=== PATIENT | male | born 1980 | race African-American/Black ===

== ENCOUNTER 2022-03-09 11:32 | Emergency (ER) | payer OTHER, SELFPAY ==
--- NOTE | ~2022-03-09 | CT_ITS ---
EXAMINATION: CT brain wo con DATE: 03/09/2022 12:59 INDICATION: Seizure. Loss of consciousness. TECHNIQUE: Computed tomography (CT) of the head was performed without intravenous contrast. The mA wa s adjusted according to patient size. Iterative reconstruction technique was employed. The dose-lengt h product was 605.33 mGy-cm. COMPARISON: None FINDINGS: There is chronic encephalomalacia in the left frontal lobe. There is no intracranial hemorr sebas, acute infarction, or abnormal intracranial mass lesion. The ventricles are normal in size. Ther e is mucosal thickening in the paranasal sinuses. The mastoid air cells are normal. The orbits are no rmal. IMPRESSION: 1. 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 Reviewed, dictated and finalized at location A.
[2022-03-09 11:36] VITALS: BP 105/51; PULSE 92; RESP 15; TEMP 36.9; O2SAT 96
--- NOTE | 2022-03-09 11:36 | ECG_ITS ---
Measurements Intervals [place] Rate: 89 P: 58 [place]: 173 QRS: 91 QRSD: 112 T: 15 QT: 384 QTc: 468 Interpretive Statements SINUS RHYTHM RIGHT AXIS DEVIATION RIGHT BUNDLE BRANCH BLOCK [120+ ms QRS DURATION, UPRIGHT V1, 40+ ms S IN I/aVL/V4/V5/V6] ABNORMAL ECG NO PREVIOUS ECG AVAILABLE FOR COMPARISON Electronically Signed On 03-10-2022 11:11:28 CDT by Iraj Kay M.D.
--- NOTE | 2022-03-09 11:36 | ED.SEIZURE ---
HPI - Seizure General Chief Complaint: Seizure Stated Complaint: seizure Time Seen by Provider: 03/09/22 11:35 Source: patient, EMS and RN notes reviewed Mode of arrival: EMS History of Present Illness HPI Narrative: Patient is 41 years old -[place] male had a seizure while shopping. Last seizure almost 1 year ago, currently patient on Keppra 500 twice daily. Patient reports that he takes his medication daily. His neurologist at [facility]. May missed his dose this morning. Bill counter that he brought with him. Patient arrived slightly confused able to answer questions. Denies any injuries girlfriend was a witness who did not come with him. Later patient's girlfriend came to the emergency room and told me that patient was seen by his neurologist 2 and half months ago, had a seizure roughly 2 months ago and was transferred to [facility] at that time and also telling me that patient does not take his medication on time. He forgets. Patient denies biting tongue or urine incontinence. Patient denies any injuries. Related Data Home Medications Medication Instructions Recorded Confirmed levetiracetam [Keppra] 500 mg PO BID 03/09/22 03/09/22 Allergies Allergy/AdvReac Type Severity Reaction Status Date / Time No Known Allergies Allergy Verified 03/09/22 11:55 Review of Systems Review of Systems: CONSTITUTIONAL: Denies fever, chills, or sweats. EYES: Denies visual changes, redness, or discharge. ENT: Denies rhinorrhea, congestion, sore throat, or otalgia. CARDIOVASCULAR: Denies chest pain, palpitations, or edema. RESPIRATORY: Denies cough or dyspnea. GASTROINTESTINAL: Denies abdominal pain, nausea, vomiting, or diarrhea. GENITOURINARY: Denies dysuria or hematuria. SKIN: Denies rash or itching. MUSCULOSKELETAL: Denies back pain, joint pain, or myalgia. NEUROLOGIC: Denies headache, numbness, or weakness. PSYCHIATRIC: Denies anxiety or depression. Exam Narrative: General appearance: Well-developed, well-nourished Skin: Normal color Head: Normocephalic, nontraumatic Eyes: Clear conjunctiva ENT: Oropharynx normal, ears normal, nose normal Neck: Supple, nontender Chest and respiratory: Airway patent, no respiratory distress, no accessory muscle use Heart: Regular rate/rhythm Abdomen: Soft, nontender, no organomegaly, quiet bowel sounds Vascular: Normal peripheral pulses, normal capillary refill. 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 Supposed to be on 500 twice daily. Patient received 1 g of Keppra IV prior to discharge. Feeling okay. Was advised to call his neurologist for further evaluation. And to take his medication on time. MDM - Seizure Imaging Data Radiologist's impression: Impressions Head CT 03/09/22 13:01 IMPRESSION: 1. 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 ECG Data EKG #1: Attestation: I personally reviewed and interpreted this ECG as follows: ECG completion date: 03/09/22 ECG completion time: 11:46 Interpretation: Normal sinus rhythm at 89 bpm, right bundle branch block, abnormal EKG Critical Care Time Critical Care Time Critical Care Time: Yes Total Critical Care Time: 30 Discharge Plan Discharge Clinical Impression: Recurrent seizures Patient Disposition: Home, Self-Care Condition: Improved Instructions: Antibiotic Form, Recurrent Seizures in Adults (ED) Additional Instructions: Call your neurologist for updating your medications and evaluation. C
[2022-03-09] MEDS: levETIRAcetam 1000MG/NACL100ML 1,000 MG/100 ML BAG 400 MG IVPB (11:57)
[2022-03-09 12:00] VITALS: BP 111/63; PULSE 86; RESP 19; O2SAT 98
[2022-03-09 12:15] VITALS: PULSE 80
[2022-03-09 12:20] LABS: Basophils Absolute Auto 0.1 K/mm3 (0.0-0.1); Basophils Percent Auto 0.8 % (0.2-1.2); Eosinophils Absolute Auto 0.1 K/mm3 (0-0.3); Eosinophils Percent Auto 1.8 % (0-4.4); Hematocrit 40.2 % (42.0-52.0); Hemoglobin 13.4 g/dL (14.0-18.0); Immature Granulocyte Absolute 0.03 K/mm3 (0.00-0.031); Immature Granulocyte Percent A 0.5 % (0-0.5); Lymphocytes Absolute Auto 1.58 K/mm3 (0.9-3.2); Lymphocytes Percent Auto 25.3 % (18.3-44.2); Mean Corpuscular HGB Conc 33.3 g/dl (32-36); Mean Corpuscular Hemoglobin 30.6 pg (26-34); Mean Corpuscular Volume 91.8 fl (80-100); Mean Platelet Volume 9.7 fl (7.4-10.4); Monocytes Absolute Auto 0.4 K/mm3 (0.1-0.6); Monocytes Percent Auto 7.1 % (2.6-8.5); Neutrophils Percent Auto 64.5 % (45.5-73.1); Platelet Count Result 157 k/mm3 (150-375); Red Blood Count 4.38 M/mm3 (4.6-6.20); White Blood Count 6.2 K/mm3 (4.5-10.0)
[2022-03-09 12:33] LABS: Alanine Aminotransferase 18 U/L (4-50); Albumin Level 3.8 g/dL (3.5-5.1); Alkaline Phosphatase 50 U/L (38-126); Anion Gap 8 mmol/L (8-16); Aspartate Amino Transferase 25 U/L (17-59); Bilirubin,Total 0.1 mg/dL (0.2-1.3); Blood Urea Nitrogen 12 mg/dL (9-20); Calcium 8.7 mg/dL (8.4-10.2); Carbon Dioxide 22 mmol/L (22-30); Chloride 109 mmol/L (98-107); Estimated CRCL calculation 88 ml/min; Estimated Glomerular Filt Rate > 60; Glucose 90 mg/dL (65-110); Potassium 4.3 mmol/L (3.4-5.0); Sodium 139 mmol/L (137-145)
[2022-03-09 12:41] VITALS: BP 113/67; PULSE 81; RESP 16; O2SAT 98
[2022-03-09 12:56] LABS: Appearance Urine Clear (Clear); Bilirubin Urine Negative (Negative); Blood Urine Negative (Negative); Color Urine Yellow (Yellow); Glucose Urine UA Negative (Negative); Ketones Urine Negative (Negative); Leukocyte Esterase Ur Negative LEU/UL (Negative); Nitrate Urine Negative (Negative); Protein Urine Trace mg/dL (Negative); Specific Grav Ur 1.025 (1.001-1.035); Urobilinogen Urine 0.2 mg/dL (<2.0)
[2022-03-09 13:03] LABS: Mucus Urine Rare /lpf; RBC Urine 0-2 /hpf (0-2); WBC Urine 0-3 /hpf
[2022-03-09 13:16] VITALS: BP 116/85; PULSE 70; RESP 16; TEMP 36.6; O2SAT 99
[2022-03-09 13:28] LABS: Add Urine Microscopic? YES; Amphetamine Screen Urine Negative (Negative); Barbiturate Screen Urine Negative (Negative); Benzodiazepines Screen Urine Negative (Negative); Cannabinoid Screen Urine Negative (Negative); Cocaine Screen Urine Negative (Negative); Methadone Screen Urine Negative (Negative); Opiate Screen Urine Negative (Negative); Phencyclidine Screen Urine Negative (Negative)
== END 2022-03-09 13:24 | disposition home or self-care (01) ==
PROVIDERS: Emergency Provider Emergency Medicine
DX: G40.909 Epilepsy, unspecified, not intractable, without status epilepticus (principal); G93.89 Other specified disorders of brain
CPT/HCPCS: 36415; 70450; 80053; 80307; 81001; 85025; 93005; 96365; 99284; J1953

== ENCOUNTER 2022-06-09 18:03 | Emergency (ER) | payer SELFPAY ==
[2022-06-09 18:10] VITALS: BP 110/60; PULSE 90; RESP 15; TEMP 36.6; O2SAT 94
[2022-06-09 19:19] VITALS: BP 110/70; PULSE 82; RESP 22; O2SAT 100
--- NOTE | 2022-06-09 19:19 | PC.NURSE ---
Assumed care of pt at this time. Pt resting on stretcher, requesting water. A&Ox3.
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
== END 2022-06-09 20:27 | disposition home or self-care (01) ==
PROVIDERS: Emergency Provider Emergency Medicine
DX: G40.909 Epilepsy, unspecified, not intractable, without status epilepticus (principal)
CPT/HCPCS: 99283